=== PATIENT | male | born 1990 ===

== ENCOUNTER 2020-05-17 12:24 | Inpatient (IN) | payer BC, MEDICAID ==
--- NOTE | 2020-05-17 12:31 | EDM.PDOCBH ---
ED HPI GENERAL MEDICAL PROBLEM - General Chief Complaint: Drug or Alcohol Abuse Stated Complaint: MEDICAL DETOX ALCOHOL Time Seen by Provider: 05/17/20 12:31 Source of Information: Reports: Patient, Old Records, RN, RN Notes Reviewed History Limitations: Reports: No Limitations - History of Present Illness INITIAL COMMENTS - FREE TEXT/NARRATIVE: Pt sent to ER from [facility] [place] with request for a medical screening exam and consideration of admission for medical detox from alcohol prior to entering the treatment program. Pt claims he has been a "p roblem drinker" of alcohol for well over five years. He drinks 750mls to 1 liter of hard alcohol daily for several months. His last drink was at 0730HRS this morning. Pt reports history alcohol withdrawals in the past, and has epilepsy. He claims that he has occasional unpredictable break through seizures, last one was about a week ago. He admits to marijuana use. Denies any other drug use. Duration: Chronic Location: Reports: Generalized Severity: Severe Improves with: Reports: None Worsens with: Reports: None Associated Symptoms: Reports: No Other Symptoms - Related Data Allergies Allergy/AdvReac Type Severity Reaction Status Date / Time clarithromycin [From Biaxin] Allergy Rash Verified 05/17/20 13:01 risperidone [From Risperdal] Allergy Rash Verified 05/17/20 13:01 Home Meds: Home Meds OXcarbazepine [Trileptal] 450 mg PO BID 09/19/19 [History] levETIRAcetam [Keppra] 1,500 mg PO BID 09/19/19 [History] Citalopram [Citalopram HBr] 10 mg PO BEDTIME PRN 05/17/20 [History] Citalopram [Citalopram HBr] 10 mg PO WITHBREAKFAST 05/17/20 [History] Clotrimazole [Clotrimazole 1%] 1 applic TOP BID PRN 05/17/20 [History] Pantoprazole Sodium [Protonix] 40 mg PO DAILY 05/17/20 [History] diazePAM [Diazepam] 1 kit INH ASDIRECTED 05/17/20 [History] traZODone 25 - 50 mg PO BEDTIME PRN 05/17/20 [History] Past Medical History HEENT History: Reports: None Cardiovascular History: Reports: Hypertension Respiratory History: Reports: None Gastrointestinal History: Reports: GERD Genitourinary History: Reports: None Musculoskeletal History: Reports: None Neurological History: Reports: Seizure Psychiatric History: Reports: Addiction, Anxiety, Depression Endocrine/Metabolic History: Reports: None Insulin Pump Model and Goat Herder: None Hematologic History: Reports: None Immunologic History: Reports: None Oncologic (Cancer) History: Reports: None Dermatologic History: Reports: None - Infectious Disease History Infectious Disease History: Reports: None - Past Surgical History Head Surgeries/Procedures: Reports: None GI Surgical History: Reports: None Social & Family History - Family History Family Medical History: No Pertinent Family History - Tobacco Use Tobacco Use Status *Q: Current Every Day Tobacco User Tobacco Use Within Last Twelve Months: Cigarettes - Caffeine Use Caffeine Use: Reports: Coffee - Alcohol Use Alcohol Use History: Yes Days Per Week of Alcohol Use: 7 Date of Last Drink: 05/17/20 Time of Last Drink: 07:30 Alcohol Use Frequency: Daily - Recreational Drug Use Recreational Drug Use: Yes Drug Use in Last 12 Months: Yes Recreational Drug Type: Reports: Marijuana/Hashish Recreational Drug Use Frequency: Weekly - Living Situation & Occupation Living situation: Reports: with Family ED ROS GENERAL - Review of Systems Review Of Systems: Comprehensive ROS is negative, except as noted in HPI. ED EXAM, BEHAVIORAL HEALTH - Physical Exam Exam: See Below Exam Limited By: No Limitations General Appearance: Alert, WD/WN, No Apparent Distress Eye Exam: Bilateral Eye: EOMI, Nystagmus (Lateral gaze), PERRL Ears: Normal External Exam, Normal Canal, Hearing Grossly Normal, Normal TMs Nose: Normal Inspection, Normal Mucosa, No Blood Throat/Mouth: Normal Inspection, Normal Lips, Normal Voice, No Airway Compromise Head: Atraumatic Neck: Normal Inspection, Supple, Non-Tender, Full Range of Motion Respiratory/Chest: No Respiratory Distress, Lungs Clear, Normal Breath Sounds, No Accessory Muscle Use, Chest Non-Tender Cardiovascular: Normal Peripheral Pulses, Regular Rate, Rhythm, No Edema, No Gallop, No JVD, No Murmur, No Rub GI/Abdominal: Normal Bowel Sounds, Soft, Non-Tender, No Distention, Hepatomega ly. No: Guarding, Rigid, Rebound Back Exam: Normal Inspection Extremities: Normal Inspection, Normal Range of Motion, Non-Tender, Normal Capillary Refill, No Pedal Edema Neurological: Alert, Normal Mood/Affect, CN II-XII Intact, Normal Cognition, Normal Gait, No Motor/Sensory Deficits, Oriented x 3 Psychiatric: Normal Cognition, Normal Mood. No: Homicidal Thoughts, Suicidal Plan, Suicidal Thoughts, Auditory Hallucinations, Visual Hallucinations, Paranoid Thoughts Skin Exam: Warm, Dry, Intact, Normal color, No rash COURSE, BEHAVIORAL HEALTH COMP - Course Vital Signs: Last Vital Signs Temp 97.4 F 05/17/20 13:08 Pulse 76 05/17/20 13:08 Resp 16 05/17/20 13:08 BP 144/97 H 05/17/20 13:08 Pulse Ox 98 05/17/20 13:08 Orders, Labs, Meds: Active Orders 24 hr Category Date Time Status Peripheral IV Care [RC] . DIRECTED Care 05/17/20 12:33 Active Sodium Chloride 0.9% [Saline Flush] Med 05/17/20 12:33 Active 10 ml FLUSH ASDIRECTED PRN Sodium Chloride 0.9% with KCl [Normal Saline with 40 Med 05/17/20 14:00 Ordered mEq KCl] 1,000 ml IV ASDIRECTED Peripheral IV Insertion Adult [OM.PC] Stat Oth 05/17/20 12:32 Ordered Medication Orders Potassium Chloride/Sodium Chloride (Normal Saline With 40 Meq Kcl) 1,000 mls @ 200 mls/hr IV ASDIRECTED TATIANNA Sodium Chloride (Sodium Chloride 0.9% 10 Ml Syringe) 10 ml FLUSH ASDIRECTED PRN PRN Reason: Keep Vein Open Last Admin: 05/17/20 12:46 Dose: 10 ml Documented by: MAGDA Laboratory Tests 05/17/20 05/17/20 05/17/20 Range/Units 12:38 12:38 12:38 WBC 3.8 L (5.0-10.0) 10^3/uL RBC 4.51 L (4.6-6.2) 10^6/uL Hgb 15.2 (14.0-18.0) g/dL Hct 42.1 (40.0-54.0) % MCV 93.3 (80-100) fL MCH 33.7 (27.0-34.0) pg MCHC 36.1 H (33.0-35.0) g/dL Plt Count 89 L (150-450) 10^3/uL Neut % (Auto) 64.3 (42.2-75.2) % Lymph % (Auto) 21.6 (20.5-50.1) % [place] % (Auto) 13.3 H (2-8) % Eos % (Auto) 0.5 L (1.0-3.0) % Baso % (Auto) 0.3 (0.0-1.0) % PT 9.5 (9.0-12.0) SEC INR 0.9 (0.9-1.2) APTT 22.7 (22.0-34.0) SEC Sodium 135 L (136-145) mmol/L Potassium 2.9 L (3.5-5.1) mmol/L Chloride 95 L (98-107) mmol/L Carbon Dioxide 27 (21-32) mmol/L Anion Gap 15.9 H (7-13) mEq/L BUN 4 L (7-18) mg/dL Creatinine 0.85 (0.70-1.30) mg/dL Est Cr Clr Drug Dosing TNP Estimated GFR (MDRD) > 60 BUN/Creatinine Ratio 4.7 (No establ ref range) Glucose 87 (70-99) mg/dL Calcium 8.7 (8.5-10.1) mg/dL Magnesium 1.7 L (1.8-2.4) mg/dL Total Bilirubin 0.7 (0.2-1.0) mg/dL AST 196 H (15-37) U/L ALT 114 H (16-63) U/L Alkaline Phosphatase 103 (46-116) U/L Total Protein 6.8 (6.4-8.2) g/dL Albumin 3.6 (3.4-5.0) g/dL Globulin 3.2 Albumin/Globulin Ratio 1.1 Amylase 28 (25-115) U/L Lipase 348 (73-393) U/L TSH, Ultra Sensitive 0.85 (0.36-3.74) uIU/mL Urine Color (YELLOW) Urine Appearance (CLEAR) Urine pH (5.0-9.0) Ur Specific [place] (1.005-1.030) Urine Protein (NEGATIVE) Urine Glucose (UA) (NEGATIVE) Urine Ketones (NEGATIVE) Urine Occult Blood (NEGATIVE) Urine Nitrite (NEGATIVE) Urine Bilirubin (NEGATIVE) Urine Urobilinogen (0.2-1.0) mg/dL Ur Leukocyte Esterase (NEGATIVE) Salicylates (2.8-20(Therapeutic)) mg/dL Urine Opiates Screen (NEGATIVE) Ur Oxycodone Screen (NEGATIVE) Urine Methadone Screen (NEGATIVE) Acetaminophen 0 L (10-30 (Therapeutic)) ug/mL Ur Barbiturates Screen (NEGATIVE) U Tricyclic Antidepress (NEGATIVE) Ur Phencyclidine Scrn (NEGATIVE) Ur Amphetamine Screen (NEGATIVE) U Methamphetamines Scrn (NEGATIVE) Urine MDMA Screen (NEGATIVE) U Benzodiazepines Scrn (NEGATIVE) Urine Cocaine Screen (NEGATIVE) U Marijuana (THC) Screen (NEGATIVE) Ethyl Alcohol 273 (0) mg/dL Influenza Type A RNA (NEGATIVE) Influenza Type B RNA (NEGATIVE) SARS-CoV-2 RNA (DOMO) (NEGATIVE) 05/17/20 05/17/20 05/17/20 Range/Units 12:38 12:55 12:55 WBC (5.0-10.0) 10^3/uL RBC (4.6-6.2) 10^6/uL Hgb (14.0-18.0) g/dL Hct (40.0-54.0) % MCV (80-100) fL MCH (27.0-34.0) pg MCHC (33.0-35.0) g/dL Plt Count (150-450) 10^3/uL Neut % (Auto) (42.2-75.2) % Lymph % (Auto) (20.5-50.1) % [place] % (Auto) (2-8) % Eos % (Auto) (1.0-3.0) % Baso % (Auto) (0.0-1.0) % PT (9.0-12.0) SEC INR (0.9-1.2) APTT (22.0-34.0) SEC Sodium (136-145) mmol/L Potassium (3.5-5.1) mmol/L Chloride (98-107) mmol/L Carbon Dioxide (21-32) mmol/L Anion Gap (7-13) mEq/L BUN (7-18) mg/dL Creatinine (0.70-1.30) mg/dL Est Cr Clr Drug Dosing Estimated GFR (MDRD) BUN/Creatinine Ratio (No establ ref range) Glucose (70-99) mg/dL Calcium (8.5-10.1) mg/dL Magnesium (1.8-2.4) mg/dL Total Bilirubin (0.2-1.0) mg/dL AST (15-37) U/L ALT (16-63) U/L Alkaline Phosphatase (46-116) U/L Total Protein (6.4-8.2) g/dL Albumin (3.4-5.0) g/dL Globulin Albumin/Globulin Ratio Amylase (25-115) U/L Lipase (73-393) U/L TSH, Ultra Sensitive (0.36-3.74) uIU/mL Urine Color Yellow (YELLOW) Urine Appearance Clear (CLEAR) Urine pH 7.5 (5.0-9.0) Ur Specific [place] 1.015 (1.005-1.030) Urine Protein Negative (NEGATIVE) Urine Glucose (UA) Negative (NEGATIVE) Urine Ketones Trace H (NEGATIVE) Urine Occult Blood Negative (NEGATIVE) Urine Nitrite Negative (NEGATIVE) Urine Bilirubin Negative (NEGATIVE) Urine Urobilinogen 0.2 (0.2-1.0) mg/dL Ur Leukocyte Esterase Negative (NEGATIVE) Salicylates < 2.8 L (2.8-20(Therapeutic)) mg/dL Urine Opiates Screen Negative (NEGATIVE) Ur Oxycodone Screen Negative (NEGATIVE) Urine Methadone Screen Negative (NEGATIVE) Acetaminophen (10-30 (Therapeutic)) ug/mL Ur Barbiturates Screen Negative (NEGATIVE) U Tricyclic Antidepress Negative (NEGATIVE) Ur Phencyclidine Scrn Negative (NEGATIVE) Ur Amphetamine Screen Negative (NEGATIVE) U Methamphetamines Scrn Negative (NEGATIVE) Urine MDMA Screen Negative (NEGATIVE) U Benzodiazepines Scrn Negative (NEGATIVE) Urine Cocaine Screen Negative (NEGATIVE) U Marijuana (THC) Screen Positive H (NEGATIVE) Ethyl Alcohol (0) mg/dL Influenza Type A RNA (NEGATIVE) Influenza Type B RNA (NEGATIVE) SARS-CoV-2 RNA (DOMO) (NEGATIVE) 05/17/20 Range/Units 13:15 WBC (5.0-10.0) 10^3/uL RBC (4.6-6.2) 10^6/uL Hgb (14.0-18.0) g/dL Hct (40.0-54.0) % MCV (80-100) fL MCH (27.0-34.0) pg MCHC (33.0-35.0) g/dL Plt Count (150-450) 10^3/uL Neut % (Auto) (42.2-75.2) % Lymph % (Auto) (20.5-50.1) % [place] % (Auto) (2-8) % Eos % (Auto) (1.0-3.0) % Baso % (Auto) (0.0-1.0) % PT (9.0-12.0) SEC INR (0.9-1.2) APTT (22.0-34.0) SEC Sodium (136-145) mmol/L Potassium (3.5-5.1) mmol/L Chloride (98-107) mmol/L Carbon Dioxide (21-32) mmol/L Anion Gap (7-13) mEq/L BUN (7-18) mg/dL Creatinine (0.70-1.30) mg/dL Est Cr Clr Drug Dosing Estimated GFR (MDRD) BUN/Creatinine Ratio (No establ ref range) Glucose (70-99) mg/dL Calcium (8.5-10.1) mg/dL Magnesium (1.8-2.4) mg/dL Total Bilirubin (0.2-1.0) mg/dL AST (15-37) U/L ALT (16-63) U/L Alkaline Phosphatase (46-116) U/L Total Protein (6.4-8.2) g/dL Albumin (3.4-5.0) g/dL Globulin Albumin/Globulin Ratio Amylase (25-115) U/L Lipase (73-393) U/L TSH, Ultra Sensitive (0.36-3.74) uIU/mL Urine Color (YELLOW) Urine Appearance (CLEAR) Urine pH (5.0-9.0) Ur Specific [place] (1.005-1.030) Urine Protein (NEGATIVE) Urine Glucose (UA) (NEGATIVE) Urine Ketones (NEGATIVE) Urine Occult Blood (NEGATIVE) Urine Nitrite (NEGATIVE) Urine Bilirubin (NEGATIVE) Urine Urobilinogen (0.2-1.0) mg/dL Ur Leukocyte Esterase (NEGATIVE) Salicylates (2.8-20(Therapeutic)) mg/dL Urine Opiates Screen (NEGATIVE) Ur Oxycodone Screen (NEGATIVE) Urine Methadone Screen (NEGATIVE) Acetaminophen (10-30 (Therapeutic)) ug/mL Ur Barbiturates Screen (NEGATIVE) U Tricyclic Antidepress (NEGATIVE) Ur Phencyclidine Scrn (NEGATIVE) Ur Amphetamine Screen (NEGATIVE) U Methamphetamines Scrn (NEGATIVE) Urine MDMA Screen (NEGATIVE) U Benzodiazepines Scrn (NEGATIVE) Urine Cocaine Screen (NEGATIVE) U Marijuana (THC) Screen (NEGATIVE) Ethyl Alcohol (0) mg/dL Influenza Type A RNA Negative (NEGATIVE) Influenza Type B RNA Negative (NEGATIVE) SARS-CoV-2 RNA (DOMO) Negative (NEGATIVE) Medications Generic Name Dose Route Start Last Admin Trade Name Freq PRN Reason Stop Dose Admin Potassium Chloride/Sodium Chloride 1,000 mls @ 200 mls/hr 05/17/20 14:00 Normal Saline With 40 Meq Kcl IV ASDIRECTED TATIANNA Sodium Chloride 10 ml 05/17/20 12:33 05/17/20 12:46 Sodium Chloride 0.9% 10 Ml Syringe FLUSH 10 ml ASDIRECTED PRN Administration Keep Vein Open Discontinued Medications Generic Name Dose Route Start Last Admin Trade Name Freq PRN Reason Stop Dose Admin Multivitamins/Minerals 10 ml/ 1,011.2 mls @ 999 mls/hr 05/17/20 12:33 05/17/20 12:46 Thiamine HCl 100 mg/ Folic IV 05/17/20 13:33 999 mls/hr Acid 1 mg/ Lactated Ringer's .BOLUS ONE Administration Lorazepam 2 mg 05/17/20 12:33 05/17/20 12:45 Lorazepam 2 Mg/Ml Sdv IVPUSH 05/17/20 12:34 2 mg ONETIME ONE Administration Ondansetron HCl 4 mg 05/17/20 12:33 05/17/20 12:46 Ondansetron 4 Mg/2 Ml Sdv IV 05/17/20 12:34 4 mg ONETIME ONE Administration Potassium Chloride 60 meq 05/17/20 13:55 Potassium Chloride 10 Meq Tab.Er PO 05/17/20 13:56 ONETIME ONE Departure - Departure Time of Disposition: 14:13 (admitted to hospitalist service) Disposition: Admitted As Inpatient 65 Condition: Fair Clinical Impression: Alcohol abuse, Hypokalemia, History of epilepsy Alcohol withdrawal Qualifiers: Complication of substance-induced condition: uncomplicated Qualified Code(s): F10.230 - Alcohol dependence with withdrawal, uncomplicated - Discharge Information *PRESCRIPTION DRUG MONITORING PROGRAM REVIEWED*: Not Applicable *COPY OF PRESCRIPTION DRUG MONITORING REPORT IN PATIENT BLANCHE: Not Applicable Forms: ED Department Discharge Sepsis Event Note (ED) - Focused Exam Vital Signs: Vital Signs Temp Pulse Resp BP Pulse Ox 05/17/20 13:08 97.4 F 76 16 144/97 H 98 - My Orders Last 24 Hours: My Active Orders 05/17/20 12:32 Peripheral IV Insertion Adult [OM.PC] Stat 05/17/20 12:33 Peripheral IV Care [RC] . DIRECTED Sodium Chloride 0.9% [Saline Flush] 10 ml FLUSH ASDIRECTED PRN 05/17/20 14:00 Sodium Chloride 0.9% with KCl [Normal Saline with 40 mEq KCl] 1,000 ml IV ASDIRECTED - Assessment/Plan Last 24 Hours: My Active Orders 05/17/20 12:32 Peripheral IV Insertion Adult [OM.PC] Stat 05/17/20 12:33 Peripheral IV Care [RC] . DIRECTED Sodium Chloride 0.9% [Saline Flush] 10 ml FLUSH ASDIRECTED PRN 05/17/20 14:00 Sodium Chloride 0.9% with KCl [Normal Saline with 40 mEq KCl] 1,000 ml IV ASDIRECTED
[2020-05-17] MEDS ORDERED: Sodium Chloride 0.9% 10 ML Syringe FLUSH PRN (12:33)
[2020-05-17] MEDS ORDERED: Ondansetron 4 MG/2 ML SDV IV ONE (12:33)
[2020-05-17] MEDS ORDERED: LORazepam 2 MG/ML SDV IVPUSH ONE (12:33)
[2020-05-17] MEDS ORDERED: MVI, Adult with Vitamin K 10 ML, Thiamine 100 MG, Folic Acid 1 MG in Lactated Ringers 1... IV ONE ×4 (12:33)
[2020-05-17 13:33] LABS: ANION GAP 15.9 mEq/L (7-13); CHLORIDE,CL 95 mmol/L (98-107); SODIUM,NA 135 mmol/L (136-145)
[2020-05-17 13:35] LABS: ACETAMINOPHEN 0 ug/mL (10-30 (Therapeutic))
[2020-05-17 13:37] LABS: PTT,PARTIAL THROMBOPLSTIN TIME 22.7 SEC (22.0-34.0)
[2020-05-17] MEDS ORDERED: Potassium Chloride 10 MEQ Tab.ER PO ONE (13:55)
[2020-05-17 14:00] LABS: CORONAVIRUS COVID-19 NAA NEGATIVE (NEGATIVE)
[2020-05-17] MEDS ORDERED: Sodium Chloride 0.9% with KCl 1,000 ML IV SCH (14:00)
[2020-05-17] MEDS ORDERED: LORazepam 2 MG/ML SDV IVPUSH PRN ×3 (14:54→14:56)
--- NOTE | 2020-05-17 15:12 | PCM.SN.2 ---
- Free Text/Narrative Note: START OF DOCTOR EMAMIS HISTORY AND PHYSICAL / CONSULTATION NOTE Chief Complaint: Alcohol detoxification History of Present Illness: The patient is a 30-year-old male who is currently intoxicated/somnolent in the emergency department who initially presented for alcohol detoxification. From what I was able to ascertain he presented to a rehabilitation facility on this date for May 17, 2020 and she was referred to the emergency department as they were concerned about excepting him to their rehabilitation program while he could potentially actively going to delirium tremens. At the time my encounter with the patient he is slurring his words and somnolent and I am uncertain as to whether this may be due to alcohol intoxication itself or due to anxiety lytic agents he may have received in the emergency department. He presents for further evaluation Surgical History: Appendectomy Family History: Cancer Social History: Tobacco: Smoker Alcohol: The patient drinks 750 mL to 1000 mL/day of vodka Caffeine: Denies Drugs: Currently uses marijuana. Denies any other present drug use. In the past has used methamphetamine. Denies any other drug use in the past Allergies: Clarithromycin, risperidone Code Status: Full Pertinent Laboratory Results / Pertinent Radiology Results / Pertinent Diagnostic Results / Pertinent Vital Signs: Blood pressure 144/97, pulse 96 pot, respiration 16, temperature 97.4 degrees, 98% room air, sodium 135, magnesium is 1.7, AST 106, ALT 114, platelet count 89,000 Physical Examination: General: -Somnolent and stuporous -No acute distress -No dyspnea -No tachypnea Head: -Atraumatic -Normocephalic Eyes: -Pupils equally round and reactive to light and accommodation -Extraocular muscles intact Neurological: -Cranial nerves II-XII intact Neck: -No jugular venous distention -No thyromegaly -No cervical lymphadenopathy Heart: -Regular rate -Regular rhythm -No murmurs -No gallops -No rubs Lungs: -No wheeze -No rhonchi -No rales Abdomen: -Normal bowel sounds in all four quadrants -No rebound -No guarding -No tenderness Extremities: -2/4 pulse in all four extremities -No clubbing -No cyanosis -No edema -No calf tenderness present bilaterally -Negative Homans sign bilaterally Musculoskeletal: -5/5 bilateral upper extremity strength -5/5 bilateral lower extremity strength -Sensorium of bilateral upper extremities are equal and intact -Sensorium of bilateral lower extremities are equal and intact Additional Details / Additional Findings / Exceptions / Miscellaneous: Assessment / Plan: Alcohol intoxication with request for hospitalization for detoxification. Seizure precautions. Patient received as needed IV Ativan on a sliding scale. IV normal saline 125 mL's per hour plus multivitamin 1 tab p.o. daily plus vitamin B12 1000 mcg p.o. daily plus thiamine 100 mg p.o. daily plus folic acid 1 mg p.o. daily Epilepsy. Seizure precautions. Keppra 1500 mg p.o. twice daily plus oxcarbazepine 450 mg p.o. twice daily Hypomagnesemia. Will monitor magnesium levels intermittently and supplement as necessary Hypokalemia. Telemetry monitoring. Monitor potassium levels intermittently supplement as necessary Hyponatremia. Will monitor sodium levels intermittently. IV normal saline at 100.5 mL/h Anxiety Depression. Celexa 10 mg p.o. nightly Marijuana abuse. Patient becomes regarding marijuana cessation Thrombocytopenia. Will monitor platelet count intermittently GERD. Protonix 40 mg p.o. daily Hypertension Smoker. Patient counseled regarding smoking cessation Transaminitis. Likely sequelae of alcohol abuse. Will monitor LFTs periodically with CMP and will monitor PT/INR periodically. If we see no improvement/resolution, I will check right upper quadrant ultrasound DVT prophylaxis. Bilateral SCD Disposition: END OF DOCTOR EMAMIS HISTORY AND PHYSICAL / CONSULTATION NOTE
[2020-05-17] MEDS: Cyanocobalamin (Vitamin B12) 100 MCG Tab PO SCH (16:43)
[2020-05-17] MEDS ORDERED: Magnesium Sulfate/Water 2 GM/50 ML BAG IV ONE (17:00)
[2020-05-17] MEDS: Sodium Chloride 0.9% 1,000 ML IV SCH (19:54)
[2020-05-17] MEDS: Ondansetron 4 MG/2 ML SDV IVPUSH PRN (19:56)
[2020-05-17] MEDS: Sodium Chloride 0.9% 10 ML Syringe FLUSH PRN (20:01)
[2020-05-17] MEDS: LORazepam 2 MG/ML SDV IV PRN ×2 (20:03→21:33)
[2020-05-17] MEDS: OXcarbazepine 300 MG Tab PO SCH (20:14)
[2020-05-17] MEDS: levETIRAcetam 500 MG Tab PO SCH (20:15)
[2020-05-17] MEDS: Multivitamins, Therapeutic with Minerals Tab PO SCH (20:15)
[2020-05-17] MEDS ORDERED: Non-Formulary Medication 1 Each (Levetiracetam [Keppra] 1,000 MG Tablet) PO SCH (21:00)
[2020-05-17] MEDS ORDERED: OXcarbazepine 300 MG Tab PO SCH (21:00)
[2020-05-17] MEDS ORDERED: Non-Formulary Medication 1 Each (Oxcarbazepine 150 MG Tablet) PO SCH (21:00)
[2020-05-18] MEDS: LORazepam 2 MG/ML SDV IV PRN ×2 (01:35→05:52)
[2020-05-18] MEDS: Sodium Chloride 0.9% 10 ML Syringe FLUSH PRN ×3 (01:39→16:35)
[2020-05-18] MEDS: Ondansetron 4 MG/2 ML SDV IVPUSH PRN ×5 (01:39→20:31)
[2020-05-18] MEDS: Sodium Chloride 0.9% 1,000 ML IV SCH ×3 (03:19→19:48)
[2020-05-18 05:43] LABS: ANION GAP 12.3 mEq/L (7-13); CHLORIDE,CL 104 mmol/L (98-107); SODIUM,NA 138 mmol/L (136-145)
[2020-05-18] MEDS: Pantoprazole 40 MG Tab.CR PO SCH (06:04)
--- NOTE | 2020-05-18 07:52 | PCM.SN.2 ---
- Free Text/Narrative Note: START OF DOCTOR TAWNY PROGRESS NOTE Subjective: Overnight the patient states that he had some episodes of nausea and emesis. He denies fever, rigors, cough, wheeze, abdominal pain, chest pain, dyspnea. Per nursing staff, patient receives approximately 4 doses of Ativan overnight. I explained to the patient his current medical condition and plan of care and I have answered all his questions Objective: General: -Alert -No acute distress -No dyspnea -No tachypnea Heart: -Regular rate -Regular rhythm -No murmurs -No gallops -No rubs Lungs: -No wheeze -No rhonchi -No rales Abdomen: -Normal bowel sounds in all four quadrants -No rebound -No guarding -No tenderness Extremities: -2/4 pulse in all four extremities -No clubbing -No cyanosis -No edema Additional Details / Additional Findings / Exceptions / Miscellaneous: Patient mildly tremulous Pertinent Laboratory Results / Pertinent Radiology Results / Pertinent Diagnostic Results / Pertinent Vital Signs: Vital signs stable, blood blood count 3, hemoglobin 12.4, platelet count 57,000, AST 179, ALT 98 Assessment / Plan: Alcohol intoxication with request for hospitalization for detoxification. Seizure precautions. Patient received as needed IV Ativan on a sliding scale. IV normal saline 125 mL's per hour plus multivitamin 1 tab p.o. daily plus vitamin B12 1000 mcg p.o. daily plus thiamine 100 mg p.o. daily plus folic acid 1 mg p.o. daily Epilepsy. Seizure precautions. Keppra 1500 mg p.o. twice daily plus oxcarbazepine 450 mg p.o. twice daily Hypomagnesemia. Will monitor magnesium levels intermittently and supplement as necessary Hypokalemia. Telemetry monitoring. Monitor potassium levels intermittently supplement as necessary Hyponatremia. Will monitor sodium levels intermittently. IV normal saline at 100.5 mL/h Anxiety Depression. Celexa 20 mg p.o. nightly Marijuana abuse. Patient becomes regarding marijuana cessation Pancytopenia. Likely alcohol induced. Will monitor CBC intermittently. Check serum ferritin, iron panel, fecal occult blood. Outpatient follow-up with hematology/oncology who will probably recommend alcohol cessation GERD. Protonix 40 mg p.o. daily Hypertension. Lisinopril 10 mg p.o. daily Smoker. Patient counseled regarding smoking cessation Transaminitis. Likely sequelae of alcohol abuse. Will monitor LFTs periodically with CMP and will monitor PT/INR periodically. If we see no improvement/resolution, I will check right upper quadrant ultrasound DVT prophylaxis. Bilateral SCD Disposition: Hopeful discharge within 96 hours END OF DOCTOR EMAMIS PROGRESS NOTE
[2020-05-18] MEDS ORDERED: CITALOPRAM 10 MG PO SCH ×2 (08:00)
[2020-05-18] MEDS: Folic Acid 1 MG Tab PO SCH (08:45)
[2020-05-18] MEDS: Thiamine 100 MG Tab PO SCH (08:45)
[2020-05-18] MEDS: levETIRAcetam 500 MG Tab PO SCH ×2 (08:46→20:30)
[2020-05-18] MEDS: LORazepam 0.5 MG Tab PO PRN ×6 (08:46→20:29)
[2020-05-18] MEDS: Lisinopril 10 MG Tab PO SCH (08:47)
[2020-05-18] MEDS: OXcarbazepine 300 MG Tab PO SCH ×2 (08:48→20:30)
[2020-05-18] MEDS: Citalopram 20 MG Tab PO SCH (08:48)
[2020-05-18] MEDS ORDERED: Pantoprazole 40 MG Tab.CR PO SCH (09:00)
[2020-05-18] MEDS: Cyanocobalamin (Vitamin B12) 100 MCG Tab PO SCH (11:29)
[2020-05-18] MEDS ORDERED: Nicotine 7 MG/24 Hr Patch TRDERM PRN (12:00)
[2020-05-18] MEDS: Multivitamins, Therapeutic with Minerals Tab PO SCH (20:29)
[2020-05-18] MEDS: Nicotine 14 MG/24 Hr Patch TRDERM SCH (21:18)
[2020-05-19] MEDS: LORazepam 0.5 MG Tab PO PRN ×2 (00:42→07:41)
[2020-05-19] MEDS: Sodium Chloride 0.9% 1,000 ML IV SCH (04:08)
[2020-05-19] MEDS: Pantoprazole 40 MG Tab.CR PO SCH (06:20)
[2020-05-19 07:05] LABS: ANION GAP 14.6 mEq/L (7-13); CHLORIDE,CL 100 mmol/L (98-107); SODIUM,NA 136 mmol/L (136-145)
--- NOTE | 2020-05-19 08:09 | PCM.SN.2 ---
- Free Text/Narrative Note: START OF DOCTOR TAWNY PROGRESS NOTE Subjective: The patient complains of occasional bouts of nausea and cough which is nonproductive. Aside from this endorses no complaints. He denies fever, rigors, vomiting, wheeze, abdominal pain, dyspnea. I explained to the patient his current medical condition and plan of care and have answered all of his questions Objective: General: -Alert -No acute distress -No dyspnea -No tachypnea Heart: -Regular rate -Regular rhythm -No murmurs -No gallops -No rubs Lungs: -No wheeze -No rhonchi -No rales Abdomen: -Normal bowel sounds in all four quadrants -No rebound -No guarding -No tenderness Extremities: -2/4 pulse in all four extremities -No clubbing -No cyanosis -No edema Additional Details / Additional Findings / Exceptions / Miscellaneous: Patient mildly tremulous Pertinent Laboratory Results / Pertinent Radiology Results / Pertinent Diagnostic Results / Pertinent Vital Signs: Vital signs stable, white blood count 3.9, hemoglobin 13.9, platelet count 63,000, AST 98, ALT 92 Assessment / Plan: Alcohol intoxication with request for hospitalization for detoxification. Seizure precautions. Patient received as needed IV Ativan on a sliding scale. IV normal saline 125 mL's per hour plus multivitamin 1 tab p.o. daily plus vitamin B12 1000 mcg p.o. daily plus thiamine 100 mg p.o. daily plus folic acid 1 mg p.o. daily Epilepsy. Seizure precautions. Keppra 1500 mg p.o. twice daily plus oxcarbazepine 450 mg p.o. twice daily Hypomagnesemia. Will monitor magnesium levels intermittently and supplement as necessary Hypokalemia. Telemetry monitoring. Monitor potassium levels intermittently supplement as necessary Hyponatremia. Will monitor sodium levels intermittently. IV normal saline at 100.5 mL/h Anxiety Depression. Celexa 20 mg p.o. nightly Marijuana abuse. Patient becomes regarding marijuana cessation Pancytopenia. Likely alcohol induced. Will monitor CBC intermittently. Ferritin elevated, iron panel within normal limits, and fecal occult blood is negative. Outpatient follow-up with hematology/oncology who will probably recommend alcohol cessation GERD. Protonix 40 mg p.o. daily Hypertension. Lisinopril 10 mg p.o. daily Smoker. Patient counseled regarding smoking cessation. Nicotine patch 14 mg daily Transaminitis. Likely sequelae of alcohol abuse. Will monitor LFTs periodically with CMP and will monitor PT/INR periodically. If we see no improvement/resolution, I will check right upper quadrant ultrasound DVT prophylaxis. Bilateral SCD Disposition: Patient may potentially be a candidate for discharge on this day of May 19, 2020. We will set a higher threshold for administration of Ativan and contact the rehabilitation facility END OF DOCTOR CHELSIEMIS PROGRESS NOTE
[2020-05-19] MEDS: Folic Acid 1 MG Tab PO SCH (08:57)
[2020-05-19] MEDS: Cyanocobalamin (Vitamin B12) 100 MCG Tab PO SCH (08:57)
[2020-05-19] MEDS: levETIRAcetam 500 MG Tab PO SCH (08:58)
[2020-05-19] MEDS: Lisinopril 10 MG Tab PO SCH (09:00)
[2020-05-19] MEDS: Thiamine 100 MG Tab PO SCH (09:01)
[2020-05-19] MEDS: Citalopram 20 MG Tab PO SCH (09:01)
[2020-05-19] MEDS: OXcarbazepine 300 MG Tab PO SCH (09:01)
[2020-05-19] MEDS: Nicotine 14 MG/24 Hr Patch TRDERM SCH (09:02)
--- NOTE | 2020-05-19 09:38 | PCM.SN.2 ---
- Free Text/Narrative Note: START OF DOCTOR EMAM[facility] DISCHARGE SUMMARY Date of Admission: May 17, 2020 Date of Discharge: 9:36 AM on May 19, 2020 Primary Diagnosis: Alcohol intoxication with request for hospitalization for detoxification Secondary Diagnosis: Epilepsy Hypomagnesemia, status post treatment Hypokalemia, status post treatment Hyponatremia Anxiety Depression Marijuana abuse Pancytopenia, likely alcohol induced GERD Hypertension Smoker Transaminitis, likely sequelae of alcohol abuse Consultations: None Disposition: The patient will be transferred for alcohol rehabilitation The patient is advised follow-up with hematology/oncology within 1 month of discharge for pancytopenia which is likely alcohol induced which I suspect he will receive only the recommendation of alcohol cessation Discharge Medications: Celexa 20 mg p.o. daily Vitamin B12 1000 mcg p.o. daily Folic acid 1 mg p.o. daily Keppra 1500 mg p.o. twice daily Lisinopril 10 mg p.o. daily Multivitamin 1 tab p.o. daily Oxcarbazepine 450 mg p.o. twice daily Thiamine 100 mg p.o. daily Trazodone 50 mg p.o. nightly as needed unspecified reasonpresumed insomnia Protonix 40 mg p.o. daily END OF DOCTOR EMAMIS DISCHARGE SUMMARY
== END 2020-05-19 14:33 | disposition home or self-care (01) | DRG 897 ==
LOC: DL.ED 12:24 → DL.MS 14:49 → DL.ED 14:52
PROVIDERS: ADMIT Internal Medicine; ATTEND Internal Medicine
DX: F10.230 Alcohol dependence with withdrawal, uncomplicated (principal); F10.129 Alcohol abuse with intoxication, unspecified; E87.1 Hypo-osmolality and hyponatremia; D61.818 Other pancytopenia; F41.9 Anxiety disorder, unspecified; E87.6 Hypokalemia; E83.42 Hypomagnesemia; G40.909 Epilepsy, unspecified, not intractable, without status epilepticus; Z88.1 Allergy status to other antibiotic agents; Z88.8 Allergy status to other drugs, medicaments and biological substances; Z79.899 Other long term (current) drug therapy; F32.9 Major depressive disorder, single episode, unspecified; K21.9 Gastro-esophageal reflux disease without esophagitis; F17.210 Nicotine dependence, cigarettes, uncomplicated; I10 Essential (primary) hypertension; F12.10 Cannabis abuse, uncomplicated; Z20.822 Contact with and (suspected) exposure to COVID-19
CPT/HCPCS: 0240U; 36415; 80053; 80143; 80179; 80305; 80307; 81003; 82150; 82272; 82728; 83540; 83550; 83690; 83735; 84132; 84443; 85025; 85610; 85730; 99222; 99232; 99238; 96365; 96367; 96375; 99284; 99285-25; A9270-GY; J2060; J2405; J3411; J3475; J3480; J3490; J7030; J7120